=== PATIENT | male | born 1970 | race Caucasian/White ===

== ENCOUNTER 2017-08-09 11:43 | Emergency (ER) | payer BC, OTHER ==
[~2017-08-09] VITALS: Ht 170.2 cm; Wt 99.1 kg
[~2017-08-09 11:43] MED LIST: AZITTAB PO; BSP5 PO; HYCUDL5 PO; XNX25 PO
[2017-08-09 11:57] VITALS: TEMP 36.7
--- NOTE | 2017-08-09 12:34 | EMERGENCY ROOM VISIT NOTE ---
History Report prepared by Kamilah: Lior Bhat Under the Supervision of: Dr. Vladimir Allen M.D. First contact with patient: 12:03 Chief Complaint: SYNCOPE Stated Complaint: FAINT History of Present Illness The patient is a 46 year white old male with no significant past medical history , who presents to the Emergency Room with complaints of intermittent lightheaded and "shaky" episodes that he first noticed about 1.5 weeks ago. The patient was having a difficult time describing his symptoms but stated that he was "fuzzy" and felt very shaky. During his episode today he felt like he was going to pass out several times, and could feel his heart racing. He described this episode like "anxiety." The patient did feel nauseous but did not vomit at any time. He is not aware of anything that triggers or worsens/improves these episodes. The patient denies any other complaints at this time. He noted that his believes that he may have sleep apnea. 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 A total of ten systems were reviewed and were otherwise negative. Past Medical & Surgical No significant medical history. Family History Diabetes mellitus Heart disease Hypertension Social History Smoking Status: Never Smoker Drug Use: none Marital Status: Housing Status: lives with family Occupation Status: employed Current/Historical Medications No Active Prescriptions or Reported Meds Allergies Coded Allergies: No Known Allergies (Unverified , 08/09/17) Physical Exam Vital Signs Date Time Temp Pulse Resp B/P (MAP) Pulse Ox O2 Delivery O2 Flow Rate FiO2 08/09/17 12:59 99 Room Air 08/09/17 12:52 61 08/09/17 11:57 36.7 71 20 146/97 97 Room Air Physical Exam GENERAL: Awake, alert, well-appearing, NAD HENT: Normocephalic, atraumatic. EYES: Normal conjunctiva. Sclera non-icteric. NECK: Supple. No nuchal rigidity. FROM. RESPIRATORY: CTAB, no rhonchi, wheezing, crackles CARDIAC: RRR, no MRG ABDOMEN: Soft, NTND, BS+ MSK: No chest wall TTP, no LE edema NEURO: GCS 15, CN 2-12 intact, moves all 4s on command SKIN: No rash or jaundice noted. Medical Decision & Procedures ER Provider Diagnostic Interpretation: Radiology results as stated below per my review and radiologist interpretation: CHEST ONE VIEW PORTABLE CLINICAL HISTORY: EVALUATE WEAKNESS dyspnea COMPARISON STUDY: No previous studies for comparison. FINDINGS: The bones soft tissues and hemidiaphragms are normal. The cardiomediastinal silhouette is normal. The lungs are clear. The pulmonary vasculature is normal. IMPRESSION: Negative chest. The above report was generated using voice recognition software. It may contain grammatical, syntax or spelling errors. Electronically signed by: Bola Lopez M.D. 08/09/2017 12:43 PM Dictated Date/Time: 08/09/2017 12:42 PM Laboratory Results 08/09/17 13:15 Red Blood Count 4.88, Mean Corpuscular Volume 86.7, Mean Corpuscular Hemoglobin 31.6, Mean Corpuscular Hemoglobin Concent 36.4, Mean Platelet Volume 10.3, Neutrophils (%) (Auto) 56.6, Lymphocytes (%) (Auto) 28.6, Monocytes (%) (Auto) 7.0, Eosinophils (%) (Auto) 7.0, Basophils (%) (Auto) 0.5, Neutrophils # (Auto) 3.41, Lymphocytes # (Auto) 1.72, Monocytes # (Auto) 0.42, Eosinophils # (Auto) 0.42, Basophils # (Auto) 0.03 08/09/17 13:15 Test 08/09/17 13:15 08/09/17 13:19 White Blood Count 6.02 K/uL (4.8-10.8) Red Blood Count 4.88 M/uL (4.7-6.1) Hemoglobin 15.4 g/dL (14.0-18.0) Hematocrit 42.3 % (42-52) Mean Corpuscular Volume 86.7 fL (80-100) Mean Corpuscular Hemoglobin 31.6 pg (25-34) Mean Corpuscular Hemoglobin Concent 36.4 g/dl (32-36) Platelet Count 179 K/uL (130-400) Mean Platelet Volume 10.3 fL (7.4-10.4) Neutrophils (%) (Auto) 56.6 % Lymphocytes (%) (Auto) 28.6 % Monocytes (%) (Auto) 7.0 % Eosinophils (%) (Auto) 7.0 % Basophils (%) (Auto) 0.5 % Neutrophils # (Auto) 3.41 K/uL (1.4-6.5) Lymphocytes # (Auto) 1.72 K/uL (1.2-3.4) Monocytes # (Auto) 0.42 K/uL (0.11-0.59) Eosinophils # (Auto) 0.42 K/uL (0-0.5) Basophils # (Auto) 0.03 K/uL (0-0.2) RDW Standard Deviation 40.4 fL (36.4-46.3) RDW Coefficient of Variation 12.7 % (11.5-14.5) Immature Granulocyte % (Auto) 0.3 % Immature Granulocyte # (Auto) 0.02 K/uL (0.00-0.02) Prothrombin Time 10.4 SECONDS (9.0-12.0) Prothromb Time International Ratio 1.0 (0.9-1.1) Activated Partial Thromboplast Time 24.0 SECONDS (21.0-31.0) Partial Thromboplastin Ratio 0.9 Anion Gap 10.0 mmol/L (3-11) Est Creatinine Clear Calc Drug Dose 100.7 ml/min Estimated GFR () 99.6 Estimated GFR (Non- 85.9 BUN/Creatinine Ratio 9.8 (10-20) Calcium Level 9.1 mg/dl (8.5-10.1) Phosphorus Level 3.5 mg/dl (2.5-4.9) Magnesium Level 2.4 mg/dl (1.8-2.4) Total Bilirubin 0.5 mg/dl (0.2-1) Direct Bilirubin 0.1 mg/dl (0-0.2) Aspartate Amino Transf (AST/SGOT) 30 U/L (15-37) Alanine Aminotransferase (ALT/SGPT) 48 U/L (12-78) Alkaline Phosphatase 42 U/L (45-117) Troponin I < 0.015 ng/ml (0-0.045) Pro-B-Type Natriuretic Peptide 11 pg/ml (0-450) Total Protein 7.8 gm/dl (6.4-8.2) Albumin 4.1 gm/dl (3.4-5.0) Thyroid Stimulating Hormone (TSH) 0.979 uIu/ml (0.300-4.500) Bedside Glucose 107 mg/dl (70-99) Laboratory results reviewed by me ECG Per My Interpretation Indication: syncope ([place] syncope), other (Dizzy) Rate (beats per minute): 63 Rhythm: normal sinus Findings: T-wave inversion (In lead 3, no other), other (Normal intervals, normal axis, No STS) ED Course 1216: The patient was evaluated in room C12B. A complete history and physical exam was performed. 1402: I reevaluated the patient. Discussed results and discharge instructions: he verbalized understanding and agreement. The patient is ready for discharge. Medical Decision The patient is a 46 year white old male with no significant past medical history , who presents to the Emergency Room with complaints of intermittent lightheaded and "shaky" episodes that he first noticed about 1.5 weeks ago. Differential diagnosis: Etiologies such as vasovagal event, infection, hypoglycemia, electrolyte abnormalities, cardiac sources, intracerebral event, toxicologic, neurologic, as well as others were entertained. Patient was seen and evaluated at the bedside. Patient does describe that he has had some lightheadedness, questionable anxiety, racing heart going on 1-1/2 weeks. Patient denies any increased stresses. Patient denies any vomiting or pooping blood. Patient is not taking blood thinning medications. Patient has not syncopized. Patient denies any chest pains or shortness of breath. Patient did complain of some mild nausea but this has resolved. Patient did have blood work completed, EKG, TSH, troponin, chest x-ray. I did speak with case management in order to help arrange a follow-up with primary care appointment as the patient has not seen a primary care physician in many years. Patient declined any additional help and stated he would obtain this appointment on his own. Patient's blood work is fairly unremarkable. Patient did have a tracely elevated blood glucose that was less than 126. Patient was feeling improved upon reassessment. The patient was told of the findings and was told to follow-up with his primary care physician. Patient states that he would call to arrange an appointment. Patient was given strict follow-up, discharge, and return precautions. All questions were answered. Patient was deemed suitable for outpatient follow-up at this time. Patient agreed with the plan of care and was safely discharged home. Medication Reconcilliation Current Medication List: was personally reviewed by me Blood Pressure Screening Patient's blood pressure: Elevated blood pressure Blood pressure disposition: Referred to PCP Impression Primary Impression: Lightheaded Scribe Attestation The scribe's documentation has been prepared under my direction and personally reviewed by me in its entirety. I confirm that the note above accurately reflects all work, treatment, procedures, and medical decision making performed by me. Departure Information Dispostion Home / Self-Care Prescriptions No Active Prescriptions or Reported Meds Referrals No Doctor, Assigned (PCP) Patient Instructions ED Near [facility], [facility] Additional Instructions Please return to the emergency department if you have worsening or recurrent symptoms not amenable to at-home treatment. Please call for a follow-up appointment with her primary care physician. Please take your medications as prescribed. If you have other concerns and/or complaints please feel free to also call your primary care physician's office or return the ED for further evaluation, management, and treatment. You may take 600 mg Ibuprofen every 6 hours as needed for pain with food for no more than 2 consecutive days. You may take tylenol 1000 mg every 6 hours as needed for pain. You may take motrin and tylenol separately or at the same time. Take your medications as prescribed. If taking an antibiotic consider taking a probiotic and/or eating yogurt, but at the least, please take with food as it can cause upset stomach. You have been examined and treated today on an emergency basis only. This is not a substitute for, or an effort to provide, complete comprehensive medical care. It is impossible to recognize and treat all injuries or illnesses in a single emergency department visit. It is therefore important that you follow up closely with [facility], your PCP, and/or your specialist(s). Call as soon as possible for an appointment. Thank you for your time and consideration. I look forward to speaking with you again soon. Please don't hesitate to call us if you have any questions.
--- NOTE | 2017-08-09 12:44 | DIAGNOSTIC IMAGING REPORT ---
CHEST ONE VIEW PORTABLE CLINICAL HISTORY: EVALUATE WEAKNESS dyspnea COMPARISON STUDY: No previous studies for comparison. FINDINGS: The bones soft tissues and hemidiaphragms are normal. The cardiomediastinal silhouette is normal. The lungs are clear. The pulmonary vasculature is normal. IMPRESSION: Negative chest. The above report was generated using voice recognition software. It may contain grammatical, syntax or spelling errors. Electronically signed by: Bola Lopez M.D. 08/09/2017 12:43 PM Dictated Date/Time: 08/09/2017 12:42 PM
[2017-08-09 12:59] VITALS: O2SAT 99
[2017-08-09 13:00] VITALS: Ht 170.2 cm; Wt 99.1 kg
[2017-08-09 13:28] LABS: BASO % 0.5 %; BASO ABS # 0.03 K/uL (0-0.2); EOS ABS # 0.42 K/uL (0-0.5); HEMATOCRIT 42.3 % (42-52); HEMOGLOBIN 15.4 g/dL (14.0-18.0); IG# 0.02 K/uL (0.00-0.02); LYMPH % 28.6 %; LYMPH ABS # 1.72 K/uL (1.2-3.4); MEAN CELL VOLUME 86.7 fL (80-100); MEAN CORPUSCULAR HEMOGLOBIN 31.6 pg (25-34); MEAN CORPUSCULAR HGB CONC 36.4 g/dl (32-36); MEAN PLATELET VOLUME 10.3 fL (7.4-10.4); MONO ABS # 0.42 K/uL (0.11-0.59); NEUT % 56.6 %; NEUT ABS # 3.41 K/uL (1.4-6.5); PLATELET COUNT 179 K/uL (130-400); RED CELL DISTRIBUTION WIDTH CV 12.7 % (11.5-14.5); RED CELL DISTRIBUTION WIDTH SD 40.4 fL (36.4-46.3); WHITE BLOOD COUNT 6.02 K/uL (4.8-10.8)
[2017-08-09 13:53] LABS: ALBUMIN 4.1 gm/dl (3.4-5.0); ALT/SGPT 48 U/L (12-78); AST/SGOT 30 U/L (15-37); BLOOD UREA NITROGEN 10 mg/dl (7-18); CALCIUM 9.1 mg/dl (8.5-10.1); CARBON DIOXIDE 26 mmol/L (21-32); CREATININE 1.05 mg/dl (0.60-1.40); GLUCOSE 100 mg/dl (70-99); POTASSIUM 3.9 mmol/L (3.5-5.1); SODIUM 137 mmol/L (136-145)
[2017-08-09 14:03] LABS: ALKALINE PHOSPHATASE 42 U/L (45-117); PHOSPHORUS 3.5 mg/dl (2.5-4.9); TOTAL PROTEIN 7.8 gm/dl (6.4-8.2)
[2017-08-09 14:46] VITALS: BP 130/81; PULSE 66; O2SAT 96
== END 2017-08-09 14:47 | disposition home or self-care (01) ==
LOC: C.EDB 11:45 → C.EDC 14:47
DX: R42 Dizziness and giddiness (principal); Z83.3 Family history of diabetes mellitus; Z82.49 Family history of ischemic heart disease and other diseases of the circulatory system